=== PATIENT | male | born 1970 | race Caucasian/White ===

== ENCOUNTER 2018-11-10 14:48 | Inpatient (IN) | payer MEDICARE, OTHER ==
[2018-11-10] MEDS ORDERED: DiphenhydrAMINE 50 mg/ml Inj IVP STA (15:30)
[2018-11-10] MEDS ORDERED: DiphenhydrAMINE 50 mg/ml Inj ONE (15:40)
[2018-11-10 15:52] LABS: BASO # 0.1 K/uL (0.0-0.2); BASO % 0.6 % (0.0-2.0); EOS % 0.4 % (0.0-4.0); HEMOGLOBIN 11.4 g/dL (12.0-18.0); LYMPH # 1.4 K/uL (1.0-4.3); LYMPH % 12.7 % (20.0-40.0); MEAN CELL VOLUME 71.6 fL (80.0-94.0); MEAN CORPUSCULAR HEMOGLOBIN 22.7 pg (27.0-31.0); MEAN CORPUSCULAR HGB CONC 31.7 g/dL (33.0-37.0); MEAN PLATELET VOLUME 8.2 fL (7.2-11.7); MONO # 0.7 K/uL (0.0-0.8); NEUT # 8.7 K/uL (1.8-7.0); NEUT % 80.3 % (50.0-75.0); RBC 5.02 Mil/uL (4.40-5.90); RED CELL DISTRIBUTION WIDTH 16.9 % (11.5-14.5); WHITE BLOOD COUNT 10.9 K/uL (4.8-10.8)
[2018-11-10 16:07] LABS: ALB/GLOB RATIO 1.4 (1.0-2.1); ALBUMIN 4.5 g/dL (3.5-5.0); ALT/SGPT 26 U/L (21-72); AST/SGOT 35 U/L (17-59); BLOOD UREA NITROGEN 15 mg/dL (9-20); CALCIUM 8.7 mg/dl (8.6-10.4); GFR NON-AFRICAN AMERICAN > 60
--- NOTE | 2018-11-10 16:08 | RAD ---
Date of service: 11/10/2018 PROCEDURE: CHEST RADIOGRAPH, 1 VIEW HISTORY: SOB COMPARISON: 08/03/2017. FINDINGS: LUNGS: There is bibasilar subsegmental atelectasis. No focal consolidation PLEURA: No pneumothorax or pleural effusion. CARDIOVASCULAR: The heart is normal in size. No aortic atherosclerotic calcifications present. OSSEOUS STRUCTURES: Within normal limits for the patient's age. VISUALIZED UPPER ABDOMEN: Normal. OTHER FINDINGS: None. IMPRESSION: No active pulmonary disease.
--- NOTE | 2018-11-10 16:11 | C.PDOC ---
History Of Present Illness 47yo male with history of hypertension, comes to ER reporting left sided chest pain, described as a pressure sensation. Patient states he is visiting from [place] and has been here for the past 4 days. He reports associated headache and shortness of breath; states the headache is bifrontal and not thunderclap in nature and not the worst in his lifetime. No history of DVT or PE as well. No additional medical complaints Time Seen by Provider: 11/10/18 15:21 Chief Complaint (Nursing): Chest Pain History Per: Patient History/Exam Limitations: no limitations Onset/Duration Of Symptoms: Days Current Symptoms Are (Timing): Still Present Quality: Pressure Past Medical History Reviewed: Historical Data, Nursing Documentation, Vital Signs Vital Signs: Last Vital Signs Temp 98.2 F 11/10/18 14:53 Pulse 83 11/10/18 14:53 Resp 18 11/10/18 14:53 BP 139/84 11/10/18 14:53 Pulse Ox 100 11/10/18 14:53 - Medical History PMH: Asthma, HTN, Sleep Apnea (uses cpap ) Denies: Alzheimer's Disease, Atrial Fibrillation, CAD, Cardia Arrhythmia, CHF, Dementia, Hypercholesterolemia, Kidney Stones, Migraine, Mitral Valve Prolapse, Multiple Sclerosis, Parkinson's Disease, Peripheral Edema, Chronic Kidney Disease, TIA Surgical History: No Surg Hx Denies: Pacemaker - [facility] Procedures APPLICATION OF SPLINT (08/31/04) CENTRAL VENOUS CATHETER PLACEMENT WITH GUIDANCE (02/27/15) INJECT ANTIBIOTIC (03/07/15) NON-INVASIVE MECHANICAL VENTILATION (09/26/13) OCCUPATIONAL THERAPY (03/07/15) PERCUTANEOUS ABDOMINAL DRAINAGE (02/27/15) PHYSICAL THERAPY NEC (03/07/15) RECREATIONAL THERAPY (03/07/15) Family History: States: No Known Family Hx - Social History Hx Tobacco Use: No Hx Alcohol Use: No Hx Substance Use: No - Immunization History Hx Tetanus Toxoid Vaccination: No Hx Influenza Vaccination: No Hx Pneumococcal Vaccination: No Review Of Systems Except As Marked, All Systems Reviewed And Found Negative. Constitutional: Negative for: Fever, Chills, Sweats Cardiovascular: Positive for: Chest Pain Respiratory: Positive for: Shortness of Breath Neurological: Positive for: Headache Physical Exam - Physical Exam Appears: Non-toxic, No Acute Distress Skin: Normal Color Head: Atraumatic, Normacephalic Eye(s): bilateral: Normal Inspection Oral Mucosa: Moist Neck: Normal ROM, Supple Chest: Symmetrical Cardiovascular: Rhythm Regular Respiratory: Normal Breath Sounds, No Wheezing Gastrointestinal/Abdominal: Normal Exam, Soft Extremity: Normal ROM Neurological/Psych: Oriented x3 ED Course And Treatment - Laboratory Results Result Diagrams: 11/10/18 15:45 11/10/18 15:45 ECG: Interpreted By Me, Viewed By Me ECG Rhythm: Sinus Rhythm Interpretation Of ECG: Normal intervals, normal axis, no st/t changes Rate From EC O2 Sat by Pulse Oximetry: 100 (RA) Pulse Ox Interpretation: Normal - Radiology CXR: Interpreted by Me, Viewed By Me CXR Interpretation: Yes: No Acute Disease - CT Scan/US CT head Other Rad Studies (CT/US): Read By Radiologist, Radiology Report Reviewed CT/US Interpretation: FINDINGS: HEMORRHAGE: No intracranial hemorrhage. BRAIN: No mass effect or edema. No atrophy or chronic microvascular ischemic changes. VENTRICLES: Unremarkable. No hydrocephalus. CALVARIUM: Unremarkable. PARANASAL SINUSES: Unremarkable as visualized. No significant inflammatory changes. MASTOID AIR CELLS: Unremarkable as visualized. No inflammatory changes. OTHER FINDINGS: None. IMPRESSION: No evidence of acute intracranial hemorrhage mass effect or midline shift. Medical Decision Making Medical Decision Making: Impression: 47yo male with headache, chest pain or shortness of breath Plan: -- Labs -- CT head w/o contrast -- Benadryl 25mg IV -- Reglan 10mg IV 1717 Initial troponin and ddimer negative CT head reviewed, no acute findings Case discussed with Dr. Harris and patient to be admitted for observation due to chest pain. 1826 - notified to admit patient to Dr. Oralia Palumbo. Disposition Discussed With : Juan Palumbo Doctor Will See Patient In The: Hospital Counseled Patient/Family Regarding: Studies Performed, Diagnosis - Disposition Disposition: HOSPITALIZED Disposition Time: 17:21 Condition: FAIR - Clinical Impression Clinical Impression: Chest pain, Headache - Scribe Statement The provider has reviewed the documentation as recorded by the Naseem Raymundo Provider Attestation: All medical record entries made by the Naseem were at my direction and personally dictated by me. I have reviewed the chart and agree that the record accurately reflects my personal performance of the history, physical exam, medical decision making, and the department course for this patient. I have also personally directed, reviewed, and agree with the discharge instructions and disposition.
[2018-11-10 16:31] LABS: B-TYPE NATRIURETIC PEPTIDE 32.9 pg/mL (0-450)
--- NOTE | 2018-11-10 17:05 | CT ---
Date of service: 11/10/2018 PROCEDURE: CT HEAD WITHOUT CONTRAST. HISTORY: dizziness COMPARISON: Comparison is made with 08/04/2017 TECHNIQUE: Axial computed tomography images were obtained through the head/brain without intravenous contrast. Radiation dose: Total exam DLP = 1208.19 mGy-cm. This CT exam was performed using one or more of the following dose reduction techniques: Automated exposure control, adjustment of the mA and/or kV according to patient size, and/or use of iterative reconstruction technique. FINDINGS: HEMORRHAGE: No intracranial hemorrhage. BRAIN: No mass effect or edema. No atrophy or chronic microvascular ischemic changes. VENTRICLES: Unremarkable. No hydrocephalus. CALVARIUM: Unremarkable. PARANASAL SINUSES: Unremarkable as visualized. No significant inflammatory changes. MASTOID AIR CELLS: Unremarkable as visualized. No inflammatory changes. OTHER FINDINGS: None. IMPRESSION: No evidence of acute intracranial hemorrhage mass effect or midline shift.
--- NOTE | 2018-11-10 18:27 | CP.PCM.CON ---
History of Present Illness - History of Present Illness History of Present Illness: 47yo male with history of hypertension, comes to ER reporting left sided chest pain as well as headache described as severe He reports associated headache and shortness of breath; states the headache is bifrontal denies fever or neck stiffness no photophobia seen in ER and Radiology suite Tue11/10/2018 - Medical History PMH: Asthma, HTN, Sleep Apnea (uses cpap 18) Denies: Alzheimer's Disease, Atrial Fibrillation, CAD, Cardia Arrhythmia, CHF, Dementia, Hypercholesterolemia, Kidney Stones, Migraine, Mitral Valve Prolapse, Multiple Sclerosis, Parkinson's Disease, Peripheral Edema, Chronic Kidney Disease, TIA Review of Systems - Constitutional Constitutional: As Per HPI - EENT Eyes: absent: As Per HPI, Blind Spots, Blurred Vision, Change in Vision, Decreased Night Vision, Diplopia, Discharge, Dry Eye, Exophthalmos, Floaters, Irritation, Itchy Eyes, Loss of Peripheral Vision, Pain, Photophobia, Requires Corrective Lenses, Sees Flashes, Spots in Vision, Tunnel Vision, Other Visual Disturbances, Loss of Vision, Other Ears: absent: As Per HPI, Decreased Hearing, Ear Discharge, Ear Pain, Tinnitus, Abnormal Hearing, Disequilibrium, Dizziness, Other Nose/Mouth/Throat: absent: As Per HPI, Epistaxis, Nasal Congestion, Nasal D ischarge, Nasal Obstruction, Nasal Trauma, Nose Pain, Post Nasal Drip, Sinus Pain, Sinus Pressure, Bleeding Gums, Change in Voice, Dental Pain, Dry Mouth, Dysphagia, Halitosis, Hoarsness, Lip Swelling, Mouth Lesions, Mouth Pain, Odynophagia, Sore Throat, Throat Swelling, Tongue Swelling, Facial Pain, Neck Pain, Neck Mass, Other - Cardiovascular Cardiovascular: As Per HPI - Respiratory Respiratory: absent: As Per HPI, Cough, Dyspnea, Hemoptysis, Dyspnea on Exertion, Wheezing, Snoring, Stridor, Pain on Inspiration, Chest Congestion, Excessive Mucous Production, Change in Mucous Color, Pain with Coughing, Other - Gastrointestinal Gastrointestinal: As Per HPI - Genitourinary Genitourinary: absent: As Per HPI, Change in Urinary Stream, Difficulty Urinating, Dysuria, Flank Pain, Hematuria, Pyuria, Nocturia, Urinary Incontinence, Urinary Frequency, Urinary Hesitance, Urinary Urgency, Voiding Freq/Small Amts, Freq UTI, Hx Renal/Bladder Calculi, Hx /Renal Surgery, Bladder Distension, Other - Musculoskeletal Musculoskeletal: absent: As Per HPI, Abnormal Gait, Arthralgias, Atrophy, Back Pain, Deformity, Joint Swelling, Limited Range of Motion, Loss of Height, Muscle Cramps, Muscle Weakness, Myalgias, Neck Pain, Numbness, Radiating Pain into Limb, Stiffness, Tingling, Other - Integumentary Integumentary: absent: As Per HPI, Acne, Alopecia, Bleeding Lesions, Change in Hair, Change in Nails, Change in Pigmentation, Changing Lesions, Dry Skin, Erythema, Furuncle, Hirsutism, Lesions, New Lesions, Non-Healing Lesions, Photosensitivity, Pruritus, Rash, Skin Pain, Skin Ulcer, Sores, Striae, Swelling, Unusual Bruising, Wounds, Jaundice, Other - Neurological Neurological: As Per HPI - Psychiatric Psychiatric: absent: As Per HPI, Abnormal Sleep Pattern, Anhedonia, Anxiety, Auditory Hallucinations, Behavioral Changes, Change in Appetite, Change in Libido, Confusion, Depression, Difficulty Concentrating, Hallucinations, Homicidal Ideation, Hopelessness, Irritability, Memory Loss, Mood Swings, Panic Attacks, Paranoia, Suicidal Ideation, Visual Hallucinations, Tactile Halluci nations, Other - Endocrine Endocrine: absent: As Per HPI, Change in Body Appearance, Change in Libido, Cold Intolorance, Deepening of Voice, Excessive Sweating, Fatigue, Flushing, Heat Intolorance, Increase in Ring/Shoe/Hat Size, Palpitations, Polydipsia, Polyp hagia, Polyuria, Other - Hematologic/Lymphatic Hematologic: absent: As Per HPI, Easy Bleeding, Easy Bruising, Lymphadenopathy, Other Past Patient History - Infectious Disease Hx of Infectious Diseases: None - Tetanus Immunizations Tetanus Immunization: Unknown - Past Medical History & Family History Past Medical History?: Yes - Past Social History Smoking Status: Never Smoked - CARDIAC Hx Atrial Fibrillation: No Hx Cardia Arrhythmia: No Hx Congestive Heart Failure: No Hx Hypercholesterolemia: No Hx Hypertension: Yes Hx Mitral Valve Prolapse: No Hx Pacemaker: No Hx Peripheral Edema: No - PULMONARY Hx Asthma: Yes Hx Sleep Apnea: Yes (uses cpap 18) - NEUROLOGICAL Hx Alzheimer's Disease: No Hx Dementia: No Hx Migraine: No Hx Multiple Sclerosis: No Hx Parkinson's Disease: No Hx Transient Ischemic Attacks (TIA): No - HEENT Hx HEENT Problems: Yes Other/Comment: Wears eyeglasses -distance - RENAL Hx Chronic Kidney Disease: No Hx Kidney Stones: No - ENDOCRINE/METABOLIC Hx Endocrine Disorders: Yes Other/Comment: hyperglycemia= post bariatric surgery - HEMATOLOGICAL/ONCOLOGICAL Hx Blood Disorders: No - INTEGUMENTARY Hx Dermatological Problems: No - MUSCULOSKELETAL/RHEUMATOLOGICAL Hx Musculoskeletal Disorders: Yes Hx Falls: Yes - GASTROINTESTINAL Hx Gastrointestinal Disorders: Yes Other/Comment: History of bariatric surgery, bariatric sleeve 2014 - GENITOURINARY/GYNECOLOGICAL Hx Genitourinary Disorders: No - PSYCHIATRIC Hx Substance Use: No - SURGICAL HISTORY Hx Surgeries: Yes Hx Gastric Bypass Surgery: Yes (Gastric Sleeve 2 years ago) Other/Comment: Tummy Tuck April 2014; breast reduction june 2014; lap band 2010 - ANESTHESIA Hx Anesthesia: Yes Hx Anesthesia Reactions: No Hx Malignant Hyperthermia: No Meds Allergies/Adverse Reactions: Allergies Allergy/AdvReac Type Severity Reaction Status Date / Time No Known Allergies Allergy Verified 11/10/18 14:52 - Medications Medications: Current Medications Ibuprofen (Motrin Tab) 400 mg PO Q6 PRN PRN Reason: Pain, moderate (4-7) Ondansetron HCl (Zofran Inj) 4 mg IVP Q6 PRN PRN Reason: Nausea/Vomiting Physical Exam - Constitutional Appears: Well, No Acute Distress, Chronically Ill - Head Exam Head Exam: ATRAUMATIC, NORMAL INSPECTION, NORMOCEPHALIC - Eye Exam Eye Exam: absent: Scleral icterus Pupil Exam: NORMAL ACCOMODATION, PERRL - ENT Exam ENT Exam: Mucous Membranes Moist, Normal Exam - Neck Exam Neck exam: Positive for: Normal Inspection - Respiratory Exam Respiratory Exam: Clear to Auscultation Bilateral, NORMAL BREATHING PATTERN - Cardiovascular Exam Cardiovascular Exam: REGULAR RHYTHM - GI/Abdominal Exam GI & Abdominal Exam: Normal Bowel Sounds, Soft. absent: Tenderness - Extremities Exam Extremities exam: Positive for: normal inspection - Back Exam Back exam: NORMAL INSPECTION - Neurological Exam Neurological exam: Alert, CN II-XII Intact, Normal Gait, Oriented x3, Reflexes Normal - Psychiatric Exam Psychiatric exam: Normal Affect, Normal Mood - Skin Skin Exam: Dry, Intact, Normal Color, Warm Results - Vital Signs Recent Vital Signs: Last Vital Signs Temp 98.2 F 11/10/18 14:53 Pulse 83 11/10/18 14:53 Resp 18 11/10/18 14:53 BP 139/84 11/10/18 14:53 Pulse Ox 100 11/10/18 18:25 - Labs Result Diagrams: 11/10/18 15:45 11/10/18 15:45 Labs: Laboratory Results - last 24 hr 11/10/18 11/10/18 11/10/18 15:45 15:45 16:21 WBC 10.9 H RBC 5.02 Hgb 11.4 L Hct 35.9 MCV 71.6 L MCH 22.7 L MCHC 31.7 L RDW 16.9 H Plt Count 296 MPV 8.2 Neut % (Auto) 80.3 H Lymph % (Auto) 12.7 L [place] % (Auto) 6.0 Eos % (Auto) 0.4 Baso % (Auto) 0.6 Neut # (Auto) 8.7 H Lymph # (Auto) 1.4 Benson # (Auto) 0.7 Eos # (Auto) 0.0 Baso # (Auto) 0.1 D-Dimer, Quantitative < 200 Sodium 137 Potassium 3.8 Chloride 99 Carbon Dioxide 25 Anion Gap 17 BUN 15 Creatinine 0.8 Est GFR ( Amer) > 60 Est GFR (Non-Af Amer) > 60 Random Glucose 95 Calcium 8.7 Total Bilirubin 0.5 AST 35 ALT 26 Alkaline Phosphatase 104 Troponin I < 0.0120 NT-Pro-B Natriuret Pep 32.9 Total Protein 7.6 Albumin 4.5 Globulin 3.1 Albumin/Globulin Ratio 1.4 Assessment & Plan (1) Chest pain Status: Acute (2) Radiculopathy Status: Acute (3) Headache Status: Chronic - Assessment and Plan (Free Text) Assessment: no definite evidence of infection recc : neuro eval consider LP if fever / headache develop
[2018-11-10] MEDS ORDERED: Iodixanol 320 MG/ML 100 ML BOTTLE IV ONE (18:31)
--- NOTE | 2018-11-10 23:14 | CP.PCM.HP ---
Past Patient History - Infectious Disease Hx of Infectious Diseases: None - Tetanus Immunizations Tetanus Immunization: Unknown - Past Medical History & Family History Past Medical History?: Yes - Past Social History Smoking Status: Never Smoked - CARDIAC Hx Atrial Fibrillation: No Hx Cardia Arrhythmia: No Hx Congestive Heart Failure: No Hx Hypercholesterolemia: No Hx Hypertension: Yes Hx Mitral Valve Prolapse: No Hx Pacemaker: No Hx Peripheral Edema: No - PULMONARY Hx Asthma: Yes Hx Sleep Apnea: Yes (uses cpap 18) - NEUROLOGICAL Hx Alzheimer's Disease: No Hx Dementia: No Hx Migraine: No Hx Multiple Sclerosis: No Hx Parkinson's Disease: No Hx Transient Ischemic Attacks (TIA): No - HEENT Hx HEENT Problems: Yes Other/Comment: Wears eyeglasses -distance - RENAL Hx Chronic Kidney Disease: No Hx Kidney Stones: No - ENDOCRINE/METABOLIC Hx Endocrine Disorders: Yes Other/Comment: hyperglycemia= post bariatric surgery - HEMATOLOGICAL/ONCOLOGICAL Hx Blood Disorders: No - INTEGUMENTARY Hx Dermatological Problems: No - MUSCULOSKELETAL/RHEUMATOLOGICAL Hx Musculoskeletal Disorders: Yes Hx Falls: Yes - GASTROINTESTINAL Hx Gastrointestinal Disorders: Yes Other/Comment: History of bariatric surgery, bariatric sleeve 2014 - GENITOURINARY/GYNECOLOGICAL Hx Genitourinary Disorders: No - PSYCHIATRIC Hx Substance Use: No - SURGICAL HISTORY Hx Surgeries: Yes Hx Gastric Bypass Surgery: Yes (Gastric Sleeve 2 years ago) Other/Comment: Tummy Tuck April 2014; breast reduction june 2014; lap band 2 011 - ANESTHESIA Hx Anesthesia: Yes Hx Anesthesia Reactions: No Hx Malignant Hyperthermia: No Meds Allergies/Adverse Reactions: Allergies Allergy/AdvReac Type Severity Reaction Status Date / Time No Known Allergies Allergy Verified 11/10/18 14:52 Physical Exam - Constitutional Appears: Well - Head Exam Head Exam: ATRAUMATIC, NORMAL INSPECTION, NORMOCEPHALIC - Eye Exam Eye Exam: EOMI, Normal appearance, PERRL Pupil Exam: NORMAL ACCOMODATION, PERRL - ENT Exam ENT Exam: Mucous Membranes Moist, Normal Exam - Neck Exam Neck exam: Positive for: Normal Inspection - Respiratory Exam Respiratory Exam: Decreased Breath Sounds - Cardiovascular Exam Cardiovascular Exam: REGULAR RHYTHM, +S1, +S2 - GI/Abdominal Exam GI & Abdominal Exam: Diminished Bowel Sounds, Soft - Rectal Exam Rectal Exam: Deferred Results - Vital Signs Recent Vital Signs: Last Vital Signs Temp 97.8 F 11/10/18 22:37 Pulse 70 11/10/18 22:37 Resp 20 11/10/18 22:37 BP 122/63 11/10/18 22:37 Pulse Ox 98 11/10/18 22:37 - Labs Result Diagrams: 11/10/18 15:45 11/10/18 15:45 Labs: Laboratory Results - last 24 hr 11/10/18 11/10/18 11/10/18 15:45 15:45 16:21 WBC 10.9 H RBC 5.02 Hgb 11.4 L Hct 35.9 MCV 71.6 L MCH 22.7 L MCHC 31.7 L RDW 16.9 H Plt Count 296 MPV 8.2 Neut % (Auto) 80.3 H Lymph % (Auto) 12.7 L [place] % (Auto) 6.0 Eos % (Auto) 0.4 Baso % (Auto) 0.6 Neut # (Auto) 8.7 H Lymph # (Auto) 1.4 [place] # (Auto) 0.7 Eos # (Auto) 0.0 Baso # (Auto) 0.1 ESR D-Dimer, Quantitative < 200 Sodium 137 Potassium 3.8 Chloride 99 Carbon Dioxide 25 Anion Gap 17 BUN 15 Creatinine 0.8 Est GFR ( Amer) > 60 Est GFR (Non-Af Amer) > 60 Random Glucose 95 Calcium 8.7 Total Bilirubin 0.5 AST 35 ALT 26 Alkaline Phosphatase 104 Troponin I < 0.0120 NT-Pro-B Natriuret Pep 32.9 Total Protein 7.6 Albumin 4.5 Globulin 3.1 Albumin/Globulin Ratio 1.4 Vitamin B12 11/10/18 11/10/18 19:29 21:42 WBC RBC Hgb Hct MCV MCH MCHC RDW Plt Count MPV Neut % (Auto) Lymph % (Auto) [place] % (Auto) Eos % (Auto) Baso % (Auto) Neut # (Auto) Lymph # (Auto) [place] # (Auto) Eos # (Auto) Baso # (Auto) ESR 35 H D-Dimer, Quantitative Sodium Potassium Chloride Carbon Dioxide Anion Gap BUN Creatinine Est GFR ( Amer) Est GFR (Non-Af Amer) Random Glucose Calcium Total Bilirubin AST ALT Alkaline Phosphatase Troponin I NT-Pro-B Natriuret Pep Total Protein Albumin Globulin Albumin/Globulin Ratio Vitamin B12 220 L
[2018-11-11 00:19] LABS: CK-MB 0.38 ng/mL (0.0-3.38)
[2018-11-11] MEDS: Enoxaparin 40 mg Syringe SC SCH (10:01)
[2018-11-11 16:54] LABS: CK-MB 0.23 ng/mL (0.0-3.38)
--- NOTE | 2018-11-11 18:27 | CP.PCM.PN ---
Subjective - Date & Time of Evaluation Date of Evaluation: 11/11/18 Time of Evaluation: 09:45 - Subjective Subjective: clinically same Objective - Vital Signs/Intake and Output Vital Signs (last 24 hours): Temp Pulse Resp BP Pulse Ox 97.5 F L 81 20 155/81 H 98 11/11/18 07:38 11/11/18 15:08 11/11/18 07:38 11/11/18 07:38 11/11/18 07:38 - Medications Medications: Current Medications Aspirin (Aspirin) 325 mg PO DAILY [facility] Last Admin: 11/11/18 10:01 Dose: 325 mg Cyanocobalamin (Vitamin B12 100 Mcg Tab) 100 mcg PO DAILY [facility] Enoxaparin Sodium (Lovenox) 40 mg SC DAILY [facility] Last Admin: 11/11/18 10:01 Dose: 40 mg Ibuprofen (Motrin Tab) 400 mg PO Q6 PRN PRN Reason: Pain, moderate (4-7) Last Admin: 11/11/18 17:18 Dose: 400 mg Ondansetron HCl (Zofran Inj) 4 mg IVP Q6 PRN PRN Reason: Nausea/Vomiting Last Admin: 11/10/18 19:19 Dose: 4 mg - Labs Labs: 11/10/18 15:45 11/10/18 15:45 - Constitutional Appears: Well - Head Exam Head Exam: ATRAUMATIC, NORMAL INSPECTION, NORMOCEPHALIC - Eye Exam Eye Exam: EOMI, Normal appearance, PERRL Pupil Exam: NORMAL ACCOMODATION, PERRL - ENT Exam ENT Exam: Mucous Membranes Moist, Normal Exam - Neck Exam Neck Exam: Full ROM, Normal Inspection. absent: Lymphadenopathy - Respiratory Exam Respiratory Exam: Decreased Breath Sounds - Cardiovascular Exam Cardiovascular Exam: REGULAR RHYTHM, +S1, +S2 - GI/Abdominal Exam GI & Abdominal Exam: Soft, Diminished Bowel Sounds - Rectal Exam Rectal Exam: Deferred
--- NOTE | 2018-11-11 19:57 | CP.PCM.CON ---
History of Present Illness - History of Present Illness History of Present Illness: 47yo male with history of hypertension, comes to ER reporting left sided chest pain, described as a pressure sensation. Patient states he is visiting from [place] and has been here for the past 4 days. He reports associated headache and shortness of breath; states the headache is bifrontal and not thunderclap in nature and not the worst in his lifetime. No history of DVT or PE as well. No additional medical complaintsHe recently lost his sister, who of Brain Tumor, Very fast and aggressive Gliosarcoma. He feels unhappy and depressed due to mourning as this sister was very valuable and supportive to him. He has Vitamin B12 Deficiency - Medical History PMH: Asthma, HTN, Sleep Apnea (uses cpap 18) Denies: Alzheimer's Disease, Atrial Fibrillation, CAD, Cardia Arrhythmia, CHF , Dementia, Hypercholesterolemia, Kidney Stones, Migraine, Mitral Valve Prolapse, Multiple Sclerosis, Parkinson's Disease, Peripheral Edema, Chronic Kidney Disease, TIA H/O Cervical and Lumbosacral Radiculopathy. Family History: Brain Tumor, anxiety depression, CVA in Both Parents, Brother and sister have a History of Cerebral Aneurysm and Brain Tumors, Obesity Past Patient History - Infectious Disease Hx of Infectious Diseases: None - Tetanus Immunizations Tetanus Immunization: Unknown - Past Medical History & Family History Past Medical History?: Yes - Past Social History Smoking Status: Never Smoked - CARDIAC Hx Atrial Fibrillation: No Hx Cardia Arrhythmia: No Hx Congestive Heart Failure: No Hx Hypercholesterolemia: No Hx Hypertension: Yes Hx Mitral Valve Prolapse: No Hx Pacemaker: No Hx Peripheral Edema: No - PULMONARY Hx Asthma: Yes Hx Sleep Apnea: Yes (uses cpap 18) - NEUROLOGICAL Hx Alzheimer's Disease: No Hx Dementia: No Hx Migraine: No Hx Multiple Sclerosis: No Hx Parkinson's Disease: No Hx Transient Ischemic Attacks (TIA): No - HEENT Hx HEENT Problems: Yes Other/Comment: Wears eyeglasses -distance - RENAL Hx Chronic Kidney Disease: No Hx Kidney Stones: No - ENDOCRINE/METABOLIC Hx Endocrine Disorders: Yes Other/Comment: hyperglycemia= post bariatric surgery - HEMATOLOGICAL/ONCOLOGICAL Hx Blood Disorders: No - INTEGUMENTARY Hx Dermatological Problems: No - MUSCULOSKELETAL/RHEUMATOLOGICAL Hx Musculoskeletal Disorders: Yes Hx Falls: Yes - GASTROINTESTINAL Hx Gastrointestinal Disorders: Yes Other/Comment: History of bariatric surgery, bariatric sleeve 2014 - GENITOURINARY/GYNECOLOGICAL Hx Genitourinary Disorders: No - PSYCHIATRIC, . Hx Substance Use: No -History of slip and fall accident Treated conservatively - SURGICAL HISTORY Hx Surgeries: Yes Hx Gastric Bypass Surgery: Yes (Gastric Sleeve 2 years ago) Other/Comment: Tummy Tuck April 2014; breast reduction June 2014; lap band 2010 - ANESTHESIA Hx Anesthesia: Yes Hx Anesthesia Reactions: No Hx Malignant Hyperthermia: No Meds Allergies/Adverse Reactions: Allergies Allergy/AdvReac Type Severity Reaction Status Date / Time No Known Allergies Allergy Verified 11/10/18 14:52 - Medications Medications: Current Medications Ibuprofen (Motrin Tab) 400 mg PO Q6 PRN PRN Reason: Pain, moderate (4-7) Ondansetron HCl (Zofran Inj) 4 mg IVP Q6 PRN PRN Reason: Nausea/Vomiting Results Negative CT Brain, Negative CXR, negative EKG - Vital Signs Recent Vital Signs: Last Vital Signs Temp 98.2 F 11/10/18 14:53 Pulse 83 11/10/18 14:53 Resp 18 11/10/18 14:53 BP 139/84 11/10/18 14:53 Pulse Ox 100 11/10/18 18:25 - Labs Result Diagrams: 11/10/18 15:45 11/10/18 15:45 Labs: Laboratory Results - last 24 hr 11/10/18 11/10/18 11/10/18 15:45 15:45 16:21 WBC 10.9 H RBC 5.02 Hgb 11.4 L Hct 35.9 MCV 71.6 L MCH 22.7 L MCHC 31.7 L RDW 16.9 H Plt Count 296 MPV 8.2 Neut % (Auto) 80.3 H Lymph % (Auto) 12.7 L [place] % (Auto) 6.0 Eos % (Auto) 0.4 Baso % (Auto) 0.6 Neut # (Auto) 8.7 H Lymph # (Auto) 1.4 [place] # (Auto) 0.7 Eos # (Auto) 0.0 Baso # (Auto) 0.1 D-Dimer, Quantitative < 200 Sodium 137 Potassium 3.8 Chloride 99 Carbon Dioxide 25 Anion Gap 17 BUN 15 Creatinine 0.8 Est GFR ( Amer) > 60 Est GFR (Non-Af Amer) > 60 Random Glucose 95 Calcium 8.7 Total Bilirubin 0.5 AST 35 ALT 26 Alkaline Phosphatase 104 Troponin I < 0.0120 NT-Pro-B Natriuret Pep 32.9 Total Protein 7.6 Albumin 4.5 Globulin 3.1 Albumin/Globulin Ratio 1.4 Past Patient History - Infectious Disease Hx of Infectious Diseases: None - Tetanus Immunizations Tetanus Immunization: Unknown - Past Medical History & Family History Past Medical History?: Yes - Past Social History Smoking Status: Never Smoked - CARDIAC Hx Atrial Fibrillation: No Hx Cardia Arrhythmia: No Hx Congestive Heart Failure: No Hx Hypercholesterolemia: No Hx Hypertension: Yes Hx Mitral Valve Prolapse: No Hx Pacemaker: No Hx Peripheral Edema: No - PULMONARY Hx Asthma: Yes Hx Sleep Apnea: Yes (uses cpap 18) - NEUROLOGICAL Hx Alzheimer's Disease: No Hx Dementia: No Hx Migraine: No Hx Multiple Sclerosis: No Hx Parkinson's Disease: No Hx Transient Ischemic Attacks (TIA): No - HEENT Hx HEENT Problems: Yes Other/Comment: Wears eyeglasses -distance - RENAL Hx Chronic Kidney Disease: No Hx Kidney Stones: No - ENDOCRINE/METABOLIC Hx Endocrine Disorders: Yes Other/Comment: hyperglycemia= post bariatric surgery - HEMATOLOGICAL/ONCOLOGICAL Hx Blood Disorders: No - INTEGUMENTARY Hx Dermatological Problems: No - MUSCULOSKELETAL/RHEUMATOLOGICAL Hx Musculoskeletal Disorders: Yes Hx Falls: Yes - GASTROINTESTINAL Hx Gastrointestinal Disorders: Yes Other/Comment: History of bariatric surgery, bariatric sleeve 2014 - GENITOURINARY/GYNECOLOGICAL Hx Genitourinary Disorders: No - PSYCHIATRIC Hx Substance Use: No - SURGICAL HISTORY Hx Surgeries: Yes Hx Gastric Bypass Surgery: Yes (Gastric Sleeve 2 years ago) Other/Comment: Tummy Tuck April 2014; breast reduction june 2014; lap band 2010 - ANESTHESIA Hx Anesthesia: Yes Hx Anesthesia Reactions: No Hx Malignant Hyperthermia: No Meds Allergies/Adverse Reactions: Allergies Allergy/AdvReac Type Severity Reaction Status Date / Time No Known Allergies Allergy Verified 11/10/18 14:52 - Medications Medications: Current Medications Aspirin (Aspirin) 325 mg PO DAILY [facility] Last Admin: 11/11/18 10:01 Dose: 325 mg Cyanocobalamin (Vitamin B12 100 Mcg Tab) 100 mcg PO DAILY [facility] Enoxaparin Sodium (Lovenox) 40 mg SC DAILY [facility] Last Admin: 11/11/18 10:01 Dose: 40 mg Ibuprofen (Motrin Tab) 400 mg PO Q6 PRN PRN Reason: Pain, moderate (4-7) Last Admin: 11/11/18 17:18 Dose: 400 mg Ondansetron HCl (Zofran Inj) 4 mg IVP Q6 PRN PRN Reason: Nausea/Vomiting Last Admin: 11/10/18 19:19 Dose: 4 mg Physical Exam - Neurological Exam Additional comments: Mental Status: Awake, alert, Oriented X 3, Normal memory X 3. He sounds unhappy, stressed and scared about his health, especially after the passing of his Sister. Speech is fluent, coherent. Cranial Nerves II to XII: No deficits Motor: Normal tone, power and muscle bulk. DTR: Difficult to elicit, 0-1/4 Plantar stimulation causes down going toes. Positive Lassegue test, limited neck movements. Sensory: only pain, no deficits. Cerebellar: Normal FNT Unable to check his tandem walking difficulty to perform HST due to his pain. Stature and Gait; Not tested. Results - Vital Signs Recent Vital Signs: Last Vital Signs Temp 97.8 F 11/11/18 16:00 Pulse 86 11/11/18 16:00 Resp 20 11/11/18 16:00 BP 118/78 11/11/18 16:00 Pulse Ox 97 11/11/18 16:00 - Labs Result Diagrams: 11/10/18 15:45 11/10/18 15:45 Labs: Laboratory Results - last 24 hr 11/10/18 11/10/18 11/10/18 19:29 21:42 23:53 ESR 35 H Total Creatine Kinase 84 CK-MB (Mass) 0.38 Troponin I < 0.0120 Vitamin B12 220 L 11/11/18 15:50 ESR Total Creatine Kinase 72 CK-MB (Mass) 0.23 Troponin I < 0.0120 Vitamin B12 Assessment & Plan (1) Chest pain Assessment and Plan: Acute chest pain. Status: Acute (2) Headache Assessment and Plan: Bi frontal, Throbbing 3 times per week and this last few hours a day, with photophobia and sonophobia and vomiting at times. It might be associated with panic attacks and anxiety at times. It is relieved by rest and over the counter analgesics. He has also a band like pressure like Headache which occurs while working and wile stressed and may be associated with anxiety and panic attacks. It lasts few hours daily and is relieved by rest. He is known to have a problem of Obesity and sleep apnea. He suffers from sleep apnea and is using a CPAP machine. He experience more headache in case he doesn't use his CPAP machine. Status: Chronic (3) Abdominal wall abscess Status: Acute Priority: High (4) Chest pain Status: Acute (5) DVT prophylaxis Status: Acute Priority: High (6) Dizziness Assessment and Plan: R/O Seizures, R/o CVA, Negative CT Brain Cannot fit MRI machine because of his Weight Father and Mother have a H/O CVA Status: Acute (7) Infected hematoma following procedure Status: Acute (8) Post concussion syndrome Assessment and Plan: He has more headache currently and after his concussion he feels more unhappy, especially after the passing of his beloved sister. 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 He has exacerbation of his Radiculopathy after significant efforts. Status: Acute
[2018-11-12 08:14] LABS: CK-MB 0.27 ng/mL (0.0-3.38)
[2018-11-12] MEDS: Enoxaparin 40 mg Syringe SC SCH (09:20)
--- NOTE | 2018-11-12 12:57 | CP.PCM.PN ---
Subjective - Date & Time of Evaluation Date of Evaluation: 11/12/18 Time of Evaluation: 10:00 - Subjective Subjective: clinically same Objective - Vital Signs/Intake and Output Vital Signs (last 24 hours): Temp Pulse Resp BP Pulse Ox 97.2 F L 82 18 129/82 96 11/12/18 07:00 11/12/18 07:00 11/12/18 07:00 11/12/18 07:00 11/12/18 07:00 - Medications Medications: Current Medications Aspirin (Aspirin) 325 mg PO DAILY [facility] Last Admin: 11/12/18 09:21 Dose: 325 mg Cyanocobalamin (Vitamin B12 100 Mcg Tab) 100 mcg PO DAILY [facility] Last Admin: 11/12/18 09:20 Dose: 100 mcg Enoxaparin Sodium (Lovenox) 40 mg SC DAILY [facility] Last Admin: 11/12/18 09:20 Dose: 40 mg Ibuprofen (Motrin Tab) 400 mg PO Q6 PRN PRN Reason: Pain, moderate (4-7) Last Admin: 11/11/18 23:25 Dose: 400 mg Ondansetron HCl (Zofran Inj) 4 mg IVP Q6 PRN PRN Reason: Nausea/Vomiting Last Admin: 11/10/18 19:19 Dose: 4 mg Tramadol HCl (Ultram) 50 mg PO Q6 PRN PRN Reason: Pain, moderate (4-7) Last Admin: 11/12/18 11:32 Dose: 50 mg - Labs Labs: 11/10/18 15:45 11/10/18 15:45 - Constitutional Appears: Well - Head Exam Head Exam: ATRAUMATIC, NORMAL INSPECTION, NORMOCEPHALIC - Eye Exam Eye Exam: EOMI, Normal appearance, PERRL Pupil Exam: NORMAL ACCOMODATION, PERRL - ENT Exam ENT Exam: Mucous Membranes Moist, Normal Exam - Neck Exam Neck Exam: Full ROM, Normal Inspection. absent: Lymphadenopathy - Respiratory Exam Respiratory Exam: Decreased Breath Sounds - Cardiovascular Exam Cardiovascular Exam: REGULAR RHYTHM, +S1, +S2 - GI/Abdominal Exam GI & Abdominal Exam: Soft, Diminished Bowel Sounds - Rectal Exam Rectal Exam: Deferred
--- NOTE | 2018-11-12 16:35 | CT ---
Date of service: 2018-11-10 18:44:37 PROCEDURE: CT Angiography of the Brain and neck. HISTORY: patient with intractable headache and blurry visio COMPARISON: None available. TECHNIQUE: CT angiography of the intracranial arteries was performed. Coronal and sagittal maximum intensity projection reformated images were generated. Radiation dose: Total exam DLP = 773.05 mGy-cm. This CT exam was performed using one or more of the following dose reduction techniques: Automated exposure control, adjustment of the mA and/or kV according to patient size, and/or use of iterative reconstruction technique. FINDINGS: RIGHT CAROTID ARTERIES: Common Carotid Artery: Normal. Carotid Bifurcation: Normal. Internal Carotid Artery:Normal. External Carotid Artery (proximal branches): Normal. LEFT CAROTID ARTERIES: Common Carotid Artery: Normal. Carotid Bifurcation: Normal. Internal Carotid Artery:Normal. External Carotid Artery (proximal branches): Normal. VERTEBRAL ARTERIES: Right Vertebral Artery: The right vertebral artery is small in size. Left Vertebral Artery: Normal. OTHER FINDINGS: no aortic atherosclerotic calcification or mural plaque present. INTERNAL CEREBRAL ARTERIES: Unremarkable. The skull base, petrous, cavernous and supraclinoid segments are bilaterally widely patent. ANTERIOR CEREBRAL ARTERIES: Unremarkable. A1 and A2 segments are widely patent. Smaller distal branches unremarkable, as visualized. MIDDLE CEREBRAL ARTERIES: Unremarkable. M1 and M2 segments are widely patent. Perisylvian branches grossly symmetric. POSTERIOR CIRCULATION: Basilar Artery: Unremarkable. Distal Vertebral Arteries: The distal right vertebral artery is very small in size. Posterior Cerebral Arteries: Unremarkable. Posterior Inferior Cerebellar Arteries: Unremarkable. ANEURYSM/ VASCULAR MALFORMATIONS: None. OTHER FINDINGS: None. IMPRESSION: Suboptimal study. Small size right vertebral artery. No evidence of intracranial arterial occlusion or critical stenosis. Preliminary report was submitted by [facility] Radiology contains concordant findings.
--- NOTE | 2018-11-12 16:45 | CP.PCM.PN ---
Subjective - Date & Time of Evaluation Date of Evaluation: 11/12/18 Time of Evaluation: 08:00 - Subjective Subjective: headache persists no fever alert no nucal rigidity Objective - Vital Signs/Intake and Output Vital Signs (last 24 hours): Temp Pulse Resp BP Pulse Ox 98 F 88 20 131/84 96 11/12/18 15:29 11/12/18 16:16 11/12/18 15:29 11/12/18 15:29 11/12/18 16:16 Intake and Output: 11/12/18 11/12/18 06:59 18:59 Output Total 450 Balance -450 - Medications Medications: Current Medications Aspirin (Aspirin) 325 mg PO DAILY [facility] Last Admin: 11/12/18 09:21 Dose: 325 mg Cyanocobalamin (Vitamin B12 100 Mcg Tab) 100 mcg PO DAILY [facility] Last Admin: 11/12/18 09:20 Dose: 100 mcg Enoxaparin Sodium (Lovenox) 40 mg SC DAILY [facility] Last Admin: 11/12/18 09:20 Dose: 40 mg Ibuprofen (Motrin Tab) 400 mg PO Q6 PRN PRN Reason: Pain, moderate (4-7) Last Admin: 11/11/18 23:25 Dose: 400 mg Ondansetron HCl (Zofran Inj) 4 mg IVP Q6 PRN PRN Reason: Nausea/Vomiting Last Admin: 11/10/18 19:19 Dose: 4 mg Tramadol HCl (Ultram) 50 mg PO Q6 PRN PRN Reason: Pain, moderate (4-7) Last Admin: 11/12/18 11:32 Dose: 50 mg - Labs Labs: 11/10/18 15:45 11/10/18 15:45 - Constitutional Appears: Well - Head Exam Head Exam: ATRAUMATIC, NORMAL INSPECTION, NORMOCEPHALIC - Eye Exam Eye Exam: EOMI, Normal appearance, PERRL Pupil Exam: NORMAL ACCOMODATION, PERRL - ENT Exam ENT Exam: Mucous Membranes Moist, Normal Exam - Neck Exam Neck Exam: Full ROM, Normal Inspection. absent: Lymphadenopathy - Respiratory Exam Respiratory Exam: Clear to Ausculation Bilateral, NORMAL BREATHING PATTERN - Cardiovascular Exam Cardiovascular Exam: REGULAR RHYTHM, +S1, +S2. absent: Murmur - GI/Abdominal Exam GI & Abdominal Exam: Soft, Normal Bowel Sounds. absent: Tenderness - Rectal Exam Rectal Exam: Deferred - Exam Exam: NORMAL INSPECTION - Extremities Exam Extremities Exam: Full ROM, Normal Capillary Refill, Normal Inspection. absent: Joint Swelling, Pedal Edema - Back Exam Back Exam: NORMAL INSPECTION - Neurological Exam Neurological Exam: Alert, Awake, CN II-XII Intact, Normal Gait, Oriented x3 - Psychiatric Exam Psychiatric exam: Normal Affect, Normal Mood - Skin Skin Exam: Dry, Intact, Normal Color, Warm Assessment and Plan (1) Chest pain Status: Acute (2) Radiculopathy Status: Acute (3) Headache Status: Chronic - Assessment and Plan (Free Text) Assessment: cont rx as per DR Jara
--- NOTE | 2018-11-12 20:59 | CP.PCM.PN ---
Subjective - Date & Time of Evaluation Date of Evaluation: 11/12/18 Time of Evaluation: 20:54 - Subjective Subjective: He is suffering from Headache, Mourning on his sister has improved.He is suffering from neck pain, cervical Headache, Vascular Headache, He has stress Headache. He is receiving his CPAP at night and this has helped him. He needs to have further work up for his sleep apnea after discharge. His chest pain persists, he needs Follow up for his chest pain and an in pput from ID about the possibility of a chest abscess. His Vitamin D is low and he was given Vitamin D and Oscal. Objective - Vital Signs/Intake and Output Vital Signs (last 24 hours): Temp Pulse Resp BP Pulse Ox 98 F 88 20 131/84 96 11/12/18 15:29 11/12/18 16:16 11/12/18 15:29 11/12/18 15:29 11/12/18 16:16 Intake and Output: 11/12/18 11/13/18 18:59 06:59 Output Total 450 Balance -450 - Medications Medications: Current Medications Aspirin (Aspirin) 325 mg PO DAILY [facility] Last Admin: 11/12/18 09:21 Dose: 325 mg Calcium Carbonate (Oscal) 500 mg PO BID [facility] Cyanocobalamin (Vitamin B12 100 Mcg Tab) 100 mcg PO DAILY [facility] Last Admin: 11/12/18 09:20 Dose: 100 mcg Enoxaparin Sodium (Lovenox) 40 mg SC DAILY [facility] Last Admin: 11/12/18 09:20 Dose: 40 mg Ergocalciferol (Drisdol 50,000 Intl Units Cap) 1 cap PO Q7D [facility] Ibuprofen (Motrin Tab) 400 mg PO Q6 PRN PRN Reason: Pain, moderate (4-7) Last Admin: 11/11/18 23:25 Dose: 400 mg Ondansetron HCl (Zofran Inj) 4 mg IVP Q6 PRN PRN Reason: Nausea/Vomiting Last Admin: 11/10/18 19:19 Dose: 4 mg Tramadol HCl (Ultram) 50 mg PO Q6 PRN PRN Reason: Pain, moderate (4-7) Last Admin: 11/12/18 11:32 Dose: 50 mg - Labs Labs: 11/10/18 15:45 11/10/18 15:45 Assessment and Plan (1) Chest pain Status: Acute (2) Headache Status: Chronic (3) Abdominal wall abscess Status: Acute (4) Chest pain Status: Acute (5) DVT prophylaxis Status: Acute (6) Dizziness Status: Acute (7) Infected hematoma following procedure Status: Acute (8) Post concussion syndrome Status: Acute (9) Radiculopathy Status: Acute
[2018-11-12] MEDS ORDERED: Ergocalciferol 50,000 Intl Units Cap PO SCH (21:00)
[2018-11-12 21:56] LABS: SQUAMOUS EPITHIAL 4 /hpf (0-5); URINE BACTERIA OCC (<OCC); URINE BILIRUBIN NEGATIVE (NEGATIVE); URINE BLOOD NEGATIVE (NEGATIVE); URINE CLARITY Clear (Clear); URINE COLOR Yellow (YELLOW); URINE GLUCOSE (UA) NORMAL (Normal); URINE LEUKOCYTE ESTERASE 1+ Leu/uL (Negative); URINE PROTEIN NEGATIVE (NEGATIVE); URINE UROBILINOGEN NORMAL mg/dL (0.2-1.0)
--- NOTE | 2018-11-12 22:59 | CON ---
DATE: 11/12/2018 REASON FOR CONSULTATION: Chest pain. HISTORY OF PRESENT ILLNESS: The patient is a 47-year-old morbidly obese American male, who presented because of chest discomfort. The patient stated that he went through a recent of his sister who from cancer, and started experiencing persistent chest heaviness. This has been steady until now. The patient is unaware of any history of DVT or pulmonary embolism in the past. The patient has a history of gastric bypass surgery, but regained all the weight loss that he achieved after his surgery within few years. The patient denies any associated diaphoresis, dizziness, or syncope. The patient has sleep apnea and is on BiPAP at home. SOCIAL HISTORY: The patient is a nonsmoker, nondrinker. He used to work in a restaurant recently. MEDICATIONS: Aspirin 325 mg once a day, Lovenox 40 mg subcutaneous once a day, Motrin 400 mg p.o. every 6 hours, Ultram 50 mg every 6 hours, vitamin B12 at 100 mcg daily, Zofran 4 mg intravenous every 6 hours p.r.n. REVIEW OF SYSTEMS: The patient complains of nausea, but no vomiting. No fever or chills. No dizziness or syncope. PHYSICAL EXAMINATION: GENERAL: The patient is a middle-aged male who does not appear to be in acute distress. VITAL SIGNS: Blood pressure 129/82, heart rate 82, temperature 97.2, respirations 18. HEENT: Normocephalic. CHEST: Clear. HEART: S1 and S2, regular and distant. SKIN: Bilateral inframammary scar from previous breast reduction. ABDOMEN: Soft. EXTREMITIES: 1+ pitting edema. No calf tenderness. LABORATORY DATA: Hemoglobin and hematocrit 11.4 and 35.9, white count 10.9, platelet count 296,000. D-dimer is elevated, 200. Four sets of troponins are negative. SMA-7 on 11/10/2016, day of admission, is entirely within normal limits. EKG revealed normal sinus rhythm at the rate of 79. Head CT scan without contrast, no evidence of acute intracranial finding. Head and neck CT angio is performed, but the reports are still pending. Chest x-ray, no active pulmonary disease. ASSESSMENT: 1. Chest pain, myocardial infarction is ruled out. 2. Morbid obesity. 3. Sleep apnea. RECOMMENDATIONS: Continue aspirin at 325 mg once a day, Lovenox is 40 mg subcutaneous once a day, Zofran 4 mg every 6 hours p.r.n., Ultram 50 mg every 6 hours p.r.n. Obtain an echocardiogram. The most recent echocardiographic study was in 07/2017, which revealed normal ejection fraction and no pulmonary hypertension. Nikita Riggins MD
--- NOTE | 2018-11-13 09:42 | CARD ---
APPROVED REPORT Date of service: 11/10/2018 EKG Measurement Heart [id number] [id number] <Conclusion> Normal sinus rhythm Normal ECG
[2018-11-13] MEDS: Enoxaparin 40 mg Syringe SC SCH (10:22)
--- NOTE | 2018-11-13 13:50 | CP.PCM.PN ---
Subjective - Date & Time of Evaluation Date of Evaluation: 11/13/18 Time of Evaluation: 09:00 - Subjective Subjective: denies fever c/o headache Objective - Vital Signs/Intake and Output Vital Signs (last 24 hours): Temp Pulse Resp BP Pulse Ox 98.2 F 58 L 20 126/67 96 11/13/18 04:00 11/13/18 04:00 11/13/18 04:00 11/13/18 04:00 11/13/18 10:00 Intake and Output: 11/13/18 11/13/18 06:59 18:59 Output Total 200 Balance -200 - Medications Medications: Current Medications Albuterol/Ipratropium (Duoneb 3 Mg/0.5 Mg (3 Ml) Ud) 3 ml INH RQ6 [facility] Aspirin (Aspirin) 325 mg PO DAILY [facility] Last Admin: 11/13/18 10:23 Dose: 325 mg Calcium Carbonate (Oscal) 500 mg PO BID [facility] Last Admin: 11/13/18 10:23 Dose: 500 mg Cyanocobalamin (Vitamin B12 100 Mcg Tab) 100 mcg PO DAILY [facility] Last Admin: 11/13/18 10:23 Dose: 100 mcg Enoxaparin Sodium (Lovenox) 40 mg SC DAILY [facility] Last Admin: 11/13/18 10:22 Dose: 40 mg Ergocalciferol (Drisdol 50,000 Intl Units Cap) 1 cap PO Q7D [facility] Last Admin: 11/12/18 21:07 Dose: 1 cap Ibuprofen (Motrin Tab) 400 mg PO Q6 PRN PRN Reason: Pain, moderate (4-7) Last Admin: 11/11/18 23:25 Dose: 400 mg Ondansetron HCl (Zofran Inj) 4 mg IVP Q6 PRN PRN Reason: Nausea/Vomiting Last Admin: 11/10/18 19:19 Dose: 4 mg Tramadol HCl (Ultram) 50 mg PO Q6 PRN PRN Reason: Pain, moderate (4-7) Last Admin: 11/12/18 21:08 Dose: 50 mg - Labs Labs: 11/10/18 15:45 11/10/18 15:45 - Constitutional Appears: Non-toxic, Chronically Ill - Head Exam Head Exam: NORMOCEPHALIC - Eye Exam Eye Exam: absent: Scleral icterus - ENT Exam ENT Exam: Mucous Membranes Dry - Neck Exam Neck Exam: absent: Lymphadenopathy - Respiratory Exam Respiratory Exam: Decreased Breath Sounds - Cardiovascular Exam Cardiovascular Exam: REGULAR RHYTHM - GI/Abdominal Exam GI & Abdominal Exam: Distended - Rectal Exam Rectal Exam: Deferred - Exam Exam: NORMAL INSPECTION - Extremities Exam Extremities Exam: absent: Pedal Edema - Back Exam Back Exam: absent: CVA tenderness (L), CVA tenderness (R) - Neurological Exam Neurological Exam: Alert, Awake, CN II-XII Intact Neuro motor strength exam: Left Upper Extremity: 4, Right Upper Extremity: 4, Left Lower Extremity: 4, Right Lower Extremity: 4 - Psychiatric Exam Psychiatric exam: Depressed Assessment and Plan (1) Chest pain Status: Acute (2) Radiculopathy Status: Acute (3) Headache Status: Chronic - Assessment and Plan (Free Text) Assessment: hold IV antibiotics no evidence of infection at this time
--- NOTE | 2018-11-13 14:18 | CP.PCM.PN ---
Subjective - Date & Time of Evaluation Date of Evaluation: 11/13/18 Time of Evaluation: 11:00 - Subjective Subjective: clinically same Objective - Vital Signs/Intake and Output Vital Signs (last 24 hours): Temp Pulse Resp BP Pulse Ox 98.2 F 58 L 20 126/67 96 11/13/18 04:00 11/13/18 04:00 11/13/18 04:00 11/13/18 04:00 11/13/18 10:00 Intake and Output: 11/13/18 11/13/18 06:59 18:59 Output Total 200 Balance -200 - Medications Medications: Current Medications Albuterol/Ipratropium (Duoneb 3 Mg/0.5 Mg (3 Ml) Ud) 3 ml INH RQ6 [facility] Aspirin (Aspirin) 325 mg PO DAILY [facility] Last Admin: 11/13/18 10:23 Dose: 325 mg Calcium Carbonate (Oscal) 500 mg PO BID [facility] Last Admin: 11/13/18 10:23 Dose: 500 mg Cyanocobalamin (Vitamin B12 100 Mcg Tab) 100 mcg PO DAILY [facility] Last Admin: 11/13/18 10:23 Dose: 100 mcg Enoxaparin Sodium (Lovenox) 40 mg SC DAILY [facility] Last Admin: 11/13/18 10:22 Dose: 40 mg Ergocalciferol (Drisdol 50,000 Intl Units Cap) 1 cap PO Q7D [facility] Last Admin: 11/12/18 21:07 Dose: 1 cap Ceftriaxone Sodium 1 gm/ (Sodium Chloride) 100 mls @ 100 mls/hr IVPB Q12H [facility]; Protocol Ibuprofen (Motrin Tab) 400 mg PO Q6 PRN PRN Reason: Pain, moderate (4-7) Last Admin: 11/11/18 23:25 Dose: 400 mg Ondansetron HCl (Zofran Inj) 4 mg IVP Q6 PRN PRN Reason: Nausea/Vomiting Last Admin: 11/10/18 19:19 Dose: 4 mg Tramadol HCl (Ultram) 50 mg PO Q6 PRN PRN Reason: Pain, moderate (4-7) Last Admin: 11/12/18 21:08 Dose: 50 mg - Labs Labs: 11/10/18 15:45 11/10/18 15:45
--- NOTE | 2018-11-13 18:02 | RAD ---
Date of service: 11/13/2018 PROCEDURE: Radiographs of the Lumbar Spine. HISTORY: back pain COMPARISON: No prior. FINDINGS: BONES: Normal alignment. No listhesis. No fracture. DISC SPACES: Unremarkable. OTHER FINDINGS: Calcified nonaneurysmal abdominal aorta. IMPRESSION: Unremarkable radiographs of the lumbar spine.
--- NOTE | 2018-11-13 18:02 | RAD ---
Date of service: 11/13/2018 HISTORY: Pain. No history of recent/ related trauma provided COMPARISON: No prior. FINDINGS: BONES: Alignment maintained. No fracture. DISC SPACES: Multilevel degenerative changes. SOFT TISSUES: Normal. OTHER FINDINGS: None. IMPRESSION: No acute findings related to/ accounting for the clinical presentation.
--- NOTE | 2018-11-13 18:33 | PN ---
DATE: 11/13/2018 SUBJECTIVE: The patient states he is still experiencing steady chest discomfort as well as back pain. He was wheezing last night. PHYSICAL EXAMINATION: VITAL SIGNS: Blood pressure 126/67, heart rate 68, temperature 98.2, respirations 20. HEENT: Normocephalic. CHEST: Diminished breath sounds over the bases. HEART: S1, S2. Regular. ABDOMEN: Soft. EXTREMITIES: 1+ pitting edema. ASSESSMENT: 1. Atypical chest pain, myocardial infarction is ruled out. 2. Morbid obesity. 3. Sleep apnea. 4. Bronchospasm last night. RECOMMENDATIONS: Continue aspirin at 325 mg once a day, Lovenox 40 mg subcutaneous once a day, vitamin B12 100 mcg daily. echocardiographic study performed today and obtain an x-ray . Nikita Riggins MD
[2018-11-13] MEDS: Albuterol-Ipratrop 3 mg / 0.5 (3 ml) UD INH SCH (19:30)
--- NOTE | 2018-11-13 23:14 | CARD ---
APPROVED REPORT Date of service: 11/13/2018 EXAM: Two-dimensional and M-mode echocardiogram with Doppler and color Doppler. INDICATION Chest Pain RISK FACTORS Hypertension Obesity 2D DIMENSIONS LA Vfiqrt55 (18-58mL) M-Mode DIMENSIONS Left Atrium (MM)3.83 (2.5-4.0cm)Aortic Root3.10 (2.2-3.7cm) Aortic Cusp Exc.2.20 (1.5-2.0cm) Mitral Valve MV E Gurawgxk519.9cm/sMV A Dzvkdyuh35.8cm/sE/A ratio1.1 TDI Lateral E' Peak V11.88cm/sMedial E' Peak V10.48cm/sE/Lateral E'9.2 E/Medial E'10.4 LEFT VENTRICLE The left ventricle is normal size. There is normal left ventricular wall thickness. Left ventricle systolic function is borderline. The left ventricular diastolic function is normal. RIGHT VENTRICLE The right ventricle is normal size. There is normal right ventricular wall thickness. Systolic function is borderline reduced. ATRIA The left atrium size is grossly normal. The right atrium size is normal. The interatrial septum is intact with no evidence for an atrial septal defect. AORTIC VALVE The aortic valve is normal in structure. No aortic regurgitation is present. There is no aortic valvular stenosis. MITRAL VALVE The mitral valve is normal in structure. There is no evidence of mitral valve prolapse. There is no mitral valve stenosis. There is no mitral valve regurgitation noted. TRICUSPID VALVE The tricuspid valve is normal in structure. There is no tricuspid valve regurgitation noted. PULMONIC VALVE The pulmonic valve is not well visualized. There is no pulmonic valvular regurgitation. <Conclusion> TECHNICALLY DIFFICULT STUDY Left ventricle systolic function is borderline. No aortic regurgitation is present. There is no mitral valve regurgitation noted. There is no tricuspid valve regurgitation noted. There is no pulmonic valvular regurgitation. SUGGEST ALAN FOR BETTER VISUALIZATION OF CARDIAC STRUCTURES.
--- NOTE | 2018-11-13 23:27 | CP.PCM.PN ---
Subjective - Date & Time of Evaluation Date of Evaluation: 11/13/18 Time of Evaluation: 22:00 - Subjective Subjective: Patient had an abnormal Urine Exam, many RBCs and few WBCs. He is on IV Ceftriaxone Thoracic spine X Ray and Chest X Ray are normal. Normal VS PE is showing no change. Negative bilateral Carotid Doppler. Objective - Vital Signs/Intake and Output Vital Signs (last 24 hours): Temp Pulse Resp BP Pulse Ox 97.9 F 85 20 146/87 98 11/13/18 16:39 11/13/18 19:31 11/13/18 16:39 11/13/18 16:39 11/13/18 16:39 Intake and Output: 11/13/18 11/14/18 18:59 06:59 Intake Total 300 Balance 300 - Medications Medications: Current Medications Albuterol/Ipratropium (Duoneb 3 Mg/0.5 Mg (3 Ml) Ud) 3 ml INH RQ6 [facility] Last Admin: 11/13/18 19:30 Dose: 3 ml Aspirin (Aspirin) 325 mg PO DAILY [facility] Last Admin: 11/13/18 10:23 Dose: 325 mg Calcium Carbonate (Oscal) 500 mg PO BID [facility] Last Admin: 11/13/18 17:56 Dose: 500 mg Cyanocobalamin (Vitamin B12 100 Mcg Tab) 100 mcg PO DAILY [facility] Last Admin: 11/13/18 10:23 Dose: 100 mcg Enoxaparin Sodium (Lovenox) 40 mg SC DAILY [facility] Last Admin: 11/13/18 10:22 Dose: 40 mg Ergocalciferol (Drisdol 50,000 Intl Units Cap) 1 cap PO Q7D [facility] Last Admin: 11/12/18 21:07 Dose: 1 cap Ceftriaxone Sodium 1 gm/ (Sodium Chloride) 100 mls @ 100 mls/hr IVPB Q12H [facility]; Protocol Last Admin: 11/13/18 14:38 Dose: 100 mls/hr Ibuprofen (Motrin Tab) 400 mg PO Q6 PRN PRN Reason: Pain, moderate (4-7) Last Admin: 11/11/18 23:25 Dose: 400 mg Ondansetron HCl (Zofran Inj) 4 mg IVP Q6 PRN PRN Reason: Nausea/Vomiting Last Admin: 11/10/18 19:19 Dose: 4 mg Tramadol HCl (Ultram) 50 mg PO Q6 PRN PRN Reason: Pain, moderate (4-7) Last Admin: 11/12/18 21:08 Dose: 50 mg - Labs Labs: 11/10/18 15:45 11/10/18 15:45 Assessment and Plan (1) Chest pain Status: Acute (2) Headache Status: Chronic (3) Abdominal wall abscess Status: Acute (4) Chest pain Status: Acute (5) DVT prophylaxis Status: Acute (6) Dizziness Status: Acute (7) Infected hematoma following procedure Status: Acute (8) Post concussion syndrome Status: Acute (9) Radiculopathy Status: Acute
[2018-11-14] MEDS: Albuterol-Ipratrop 3 mg / 0.5 (3 ml) UD INH SCH ×3 (07:40→20:12)
[2018-11-14 08:28] VITALS: RESP 20
[2018-11-14] MEDS: Enoxaparin 40 mg Syringe SC SCH (09:25)
--- NOTE | 2018-11-14 11:12 | VASCLAB ---
Date of service: 11/13/2018 PROCEDURE: Carotid Duplex Exam. HISTORY: R/O CVA, father had a h/O CVA COMPARISON: None available. TECHNIQUE: Grayscale and duplex Doppler evaluation of the cervical carotid and vertebral arteries were performed. The common carotid, carotid bifurcations and cervical Internal Carotid Artery (ICA) and proximal External Carotid Artery (ECA) were evaluated. The vertebral arteries were evaluated for gross patency and flow direction. Report prepared by Kwabena Kelly, BS, RVT FINDINGS: RIGHT CAROTID ARTERIES: 1. Common Carotid Artery: No significant focal plaque formation of the right common carotid artery. Maximum Peak Systolic velocity: 137 cm/sec: End-diastolic velocity 35 cm/sec. 2. Carotid Bifurcation: plaque formation. Maximum Peak Systolic velocity: 85 cm/sec: End-diastolic velocity 28 cm/sec. 3. Internal Carotid Artery: Plaque description: 3.1. Proximal Segment: Peak systolic velocity 91 cm/sec: End-diastolic velocity 28 cm/sec - % stenosis 0-15% 3.2. Middle Segment: Peak systolic velocity 88 cm/sec: End-diastolic velocity 37 cm/sec - % stenosis 0-15% 3.3. Distal Segment: Peak systolic velocity 90 cm/sec: End-diastolic velocity 33 cm/sec - % stenosis 0-15% 4. External Carotid Artery: No significant focal plaque formation. Peak systolic velocity 111 cm/sec 5. ICA/CCA Ratio: 0.8 LEFT CAROTID ARTERIES: 1. Common Carotid Artery: No significant focal plaque formation of the left common carotid artery. Maximum Peak Systolic velocity: 152 cm/sec: End-diastolic velocity 32 cm/sec. 2. Carotid Bifurcation: plaque formation. Maximum Peak Systolic velocity: 101 cm/sec: End-diastolic velocity 30 cm/sec. 3. Internal Carotid Artery: Plaque description: 3.1. Proximal Segment: Peak systolic velocity 85 cm/sec: End-diastolic velocity 29 cm/sec - % stenosis 0-15% 3.2. Middle Segment: Peak systolic velocity 83 cm/sec: End-diastolic velocity 35 cm/sec - % stenosis 0-15% 3.3. Distal Segment: Peak systolic velocity 55 cm/sec: End-diastolic velocity 23 cm/sec - % stenosis 0-15% 4. External Carotid Artery: No significant focal plaque formation. Peak systolic velocity 114 cm/sec 5. ICA/CCA Ratio: 1.1 VERTEBRAL ARTERIES: 1. Right Vertebral Artery: The right vertebral artery flow direction is antegrade. 2. Left Vertebral Artery: The left vertebral artery flow direction is antegrade. OTHER FINDINGS: 1. Right Brachial Blood pressure: 122 mmHg. 2. Left Brachial Blood pressure: 118 mmHg. IMPRESSION: RIGHT: Duplex scan does not suggest hemodynamically significant stenosis of the right extracranial carotid arteries. LEFT: Duplex scan does not suggest hemodynamically significant stenosis of the left extracranial carotid arteries.
[2018-11-14 12:03] LABS: ALB/GLOB RATIO 1.4 (1.0-2.1); ALBUMIN 3.8 g/dL (3.5-5.0); ALT/SGPT 28 U/L (21-72); AST/SGOT 22 U/L (17-59); BLOOD UREA NITROGEN 15 mg/dL (9-20); CALCIUM 8.5 mg/dl (8.6-10.4); GFR NON-AFRICAN AMERICAN > 60
[2018-11-14 12:27] LABS: HEPATITIS B SURFACE AG Negative (NEGATIVE)
--- NOTE | 2018-11-14 12:31 | CP.PCM.PN ---
Subjective - Date & Time of Evaluation Date of Evaluation: 11/14/18 Time of Evaluation: 08:00 - Subjective Subjective: c/o abd pain afeb Objective - Vital Signs/Intake and Output Vital Signs (last 24 hours): Temp Pulse Resp BP Pulse Ox 97.5 F L 80 20 133/85 100 11/14/18 08:00 11/14/18 08:00 11/14/18 08:00 11/14/18 08:00 11/14/18 08:00 - Medications Medications: Current Medications Albuterol/Ipratropium (Duoneb 3 Mg/0.5 Mg (3 Ml) Ud) 3 ml INH RQ6 [facility] Last Admin: 11/14/18 07:40 Dose: 3 ml Aspirin (Aspirin) 325 mg PO DAILY [facility] Last Admin: 11/14/18 09:25 Dose: 325 mg Calcium Carbonate (Oscal) 500 mg PO BID [facility] Last Admin: 11/14/18 09:25 Dose: 500 mg Cyanocobalamin (Vitamin B12 100 Mcg Tab) 100 mcg PO DAILY [facility] Last Admin: 11/14/18 09:25 Dose: 100 mcg Enoxaparin Sodium (Lovenox) 40 mg SC DAILY [facility] Last Admin: 11/14/18 09:25 Dose: 40 mg Ergocalciferol (Drisdol 50,000 Intl Units Cap) 1 cap PO Q7D [facility] Last Admin: 11/12/18 21:07 Dose: 1 cap Ceftriaxone Sodium 1 gm/ (Sodium Chloride) 100 mls @ 100 mls/hr IVPB Q12H [facility]; Protocol Last Admin: 11/14/18 02:06 Dose: 100 mls/hr Ibuprofen (Motrin Tab) 400 mg PO Q6 PRN PRN Reason: Pain, moderate (4-7) Last Admin: 11/11/18 23:25 Dose: 400 mg Ondansetron HCl (Zofran Inj) 4 mg IVP Q6 PRN PRN Reason: Nausea/Vomiting Last Admin: 11/10/18 19:19 Dose: 4 mg Tramadol HCl (Ultram) 50 mg PO Q6 PRN PRN Reason: Pain, moderate (4-7) Last Admin: 11/12/18 21:08 Dose: 50 mg - Labs Labs: 11/10/18 15:45 11/14/18 11:32 - Constitutional Appears: Non-toxic, Chronically Ill - Head Exam Head Exam: NORMOCEPHALIC - Eye Exam Eye Exam: absent: Scleral icterus - ENT Exam ENT Exam: Mucous Membranes Dry - Neck Exam Neck Exam: absent: Lymphadenopathy - Respiratory Exam Respiratory Exam: Decreased Breath Sounds - Cardiovascular Exam Cardiovascular Exam: REGULAR RHYTHM - GI/Abdominal Exam GI & Abdominal Exam: Distended, Soft, Tenderness - Rectal Exam Rectal Exam: Deferred - Exam Exam: NORMAL INSPECTION Assessment and Plan (1) Chest pain Status: Acute (2) Radiculopathy Status: Acute (3) Headache Status: Chronic - Assessment and Plan (Free Text) Assessment: recc : GI eval IV antibiotics for UTI
[2018-11-14 12:32] LABS: HEPATITIS A IGM NEGATIVE (NEGATIVE); HEPATITIS B CORE AB NEGATIVE (NEGATIVE)
[2018-11-14] MEDS ORDERED: Glucagon Recombinant 1 mg Inj IM PRN (12:41)
[2018-11-14] MEDS ORDERED: Dextrose 50% SYRINGE Inj (50 ml) IV PRN (12:41)
[2018-11-14 12:44] LABS: HEPATITIS C ANTIBODY NEGATIVE (NEGATIVE)
[2018-11-14 13:15] VITALS: BMI 58.1
[2018-11-14 15:00] LABS: BASO # 0.1 K/uL (0.0-0.2); BASO % 0.6 % (0.0-2.0); EOS # 0.1 K/uL (0.0-0.7); HEMOGLOBIN 11.2 g/dL (12.0-18.0); LYMPH # 1.6 K/uL (1.0-4.3); MEAN CELL VOLUME 72.6 fL (80.0-94.0); MEAN CORPUSCULAR HEMOGLOBIN 22.4 pg (27.0-31.0); MEAN CORPUSCULAR HGB CONC 30.8 g/dL (33.0-37.0); MONO # 0.9 K/uL (0.0-0.8); MONO % 10.5 % (0.0-10.0); NEUT # 5.9 K/uL (1.8-7.0); NEUT % 68.9 % (50.0-75.0); RBC 4.98 Mil/uL (4.40-5.90); RED CELL DISTRIBUTION WIDTH 16.9 % (11.5-14.5); WHITE BLOOD COUNT 8.5 K/uL (4.8-10.8)
--- NOTE | 2018-11-14 15:45 | CP.PCM.PN ---
Subjective - Date & Time of Evaluation Date of Evaluation: 11/14/18 Time of Evaluation: 15:45 Objective - Vital Signs/Intake and Output Vital Signs (last 24 hours): Temp Pulse Resp BP Pulse Ox 97.5 F L 80 20 133/85 100 11/14/18 08:00 11/14/18 08:00 11/14/18 08:00 11/14/18 08:00 11/14/18 08:00 - Medications Medications: Current Medications Albuterol/Ipratropium (Duoneb 3 Mg/0.5 Mg (3 Ml) Ud) 3 ml INH RQ6 [facility] Last Admin: 11/14/18 13:45 Dose: 3 ml Aspirin (Aspirin) 325 mg PO DAILY [facility] Last Admin: 11/14/18 09:25 Dose: 325 mg Calcium Carbonate (Oscal) 500 mg PO BID [facility] Last Admin: 11/14/18 09:25 Dose: 500 mg Cyanocobalamin (Vitamin B12 100 Mcg Tab) 100 mcg PO DAILY [facility] Last Admin: 11/14/18 09:25 Dose: 100 mcg Dextrose (Dextrose 50% Inj) 0 ml IV STAT PRN; Protocol PRN Reason: Hypoglycemia Protocol Dextrose (Glutose 15) 0 gm PO ONCE PRN; Protocol PRN Reason: Hypoglycemia Protocol Enoxaparin Sodium (Lovenox) 40 mg SC DAILY [facility] Last Admin: 11/14/18 09:25 Dose: 40 mg Ergocalciferol (Drisdol 50,000 Intl Units Cap) 1 cap PO Q7D [facility] Last Admin: 11/12/18 21:07 Dose: 1 cap Glucagon (Glucagen Diagnostic Kit) 0 mg IM STAT PRN; Protocol PRN Reason: Hypoglycemia Protocol Ceftriaxone Sodium 1 gm/ (Sodium Chloride) 100 mls @ 100 mls/hr IVPB Q12H [facility]; Protocol Last Admin: 11/14/18 02:06 Dose: 100 mls/hr Dextrose (Dextrose 5% In Water 1000 Ml) 1,000 mls @ 0 mls/hr IV .Q0M PRN; Protocol PRN Reason: Hypoglycemia Protocol Ibuprofen (Motrin Tab) 400 mg PO Q6 PRN PRN Reason: Pain, moderate (4-7) Last Admin: 11/11/18 23:25 Dose: 400 mg Ondansetron HCl (Zofran Inj) 4 mg IVP Q6 PRN PRN Reason: Nausea/Vomiting Last Admin: 11/10/18 19:19 Dose: 4 mg Tramadol HCl (Ultram) 50 mg PO Q6 PRN PRN Reason: Pain, moderate (4-7) Last Admin: 11/12/18 21:08 Dose: 50 mg - Labs Labs: 11/14/18 14:46 11/14/18 11:32 Assessment and Plan - Assessment and Plan (Free Text) Assessment: FOLLOW UP WITH DR Esequiel HU IN HIS OFFICE ------CALL FOR APPOINTMENT FOLLOW UP LUIS IN HIS OFFICE -----CALL FOR APPOINTMENT FOLLOW UP WITH DR HAMILTON IN HIS OFFICE -----CALL FOR APPOINTMENT ADDRESS YOUR BLOOD RESULT AT YOUR VISIT FOLLOW UP WITH DR VELASQUEZ IN HIS OFFICE ADDRESS YOUR STRESS TEST OUT PATIENT AT YOUR VISIT CONTINUE HOME MEDICATION NEW PRESCRIPTION GIVEN OSCAL ONE TAB PO DAILY VIT B12 ON TAB PO DAILY DRISDOL ONE TAB PO EVERY 7 DAYS ACTIVITY TOLERATED CALL DR Esequiel HU OR GO TO THE EMERGENCY ROOM IF SYMPTOM RETURN OR WORSENING
--- NOTE | 2018-11-14 17:56 | CP.PCM.PN ---
Subjective - Date & Time of Evaluation Date of Evaluation: 11/14/18 Time of Evaluation: 10:45 - Subjective Subjective: clinically same Objective - Vital Signs/Intake and Output Vital Signs (last 24 hours): Temp Pulse Resp BP Pulse Ox 97.7 F 88 20 126/80 99 11/14/18 15:17 11/14/18 15:17 11/14/18 15:17 11/14/18 15:17 11/14/18 15:17 - Medications Medications: Current Medications Albuterol/Ipratropium (Duoneb 3 Mg/0.5 Mg (3 Ml) Ud) 3 ml INH RQ6 [facility] Last Admin: 11/14/18 13:45 Dose: 3 ml Aspirin (Aspirin) 325 mg PO DAILY [facility] Last Admin: 11/14/18 09:25 Dose: 325 mg Calcium Carbonate (Oscal) 500 mg PO BID [facility] Last Admin: 11/14/18 17:45 Dose: 500 mg Cyanocobalamin (Vitamin B12 100 Mcg Tab) 100 mcg PO DAILY [facility] Last Admin: 11/14/18 09:25 Dose: 100 mcg Dextrose (Dextrose 50% Inj) 0 ml IV STAT PRN; Protocol PRN Reason: Hypoglycemia Protocol Dextrose (Glutose 15) 0 gm PO ONCE PRN; Protocol PRN Reason: Hypoglycemia Protocol Enoxaparin Sodium (Lovenox) 40 mg SC DAILY [facility] Last Admin: 11/14/18 09:25 Dose: 40 mg Ergocalciferol (Drisdol 50,000 Intl Units Cap) 1 cap PO Q7D [facility] Last Admin: 11/12/18 21:07 Dose: 1 cap Glucagon (Glucagen Diagnostic Kit) 0 mg IM STAT PRN; Protocol PRN Reason: Hypoglycemia Protocol Dextrose (Dextrose 5% In Water 1000 Ml) 1,000 mls @ 0 mls/hr IV .Q0M PRN; Protocol PRN Reason: Hypoglycemia Protocol Ceftriaxone Sodium 1 gm/ (Sodium Chloride) 100 mls @ 100 mls/hr IVPB Q12H [facility]; Protocol Ibuprofen (Motrin Tab) 400 mg PO Q6 PRN PRN Reason: Pain, moderate (4-7) Last Admin: 11/11/18 23:25 Dose: 400 mg Ondansetron HCl (Zofran Inj) 4 mg IVP Q6 PRN PRN Reason: Nausea/Vomiting Last Admin: 11/10/18 19:19 Dose: 4 mg Tramadol HCl (Ultram) 50 mg PO Q6 PRN PRN Reason: Pain, moderate (4-7) Last Admin: 11/12/18 21:08 Dose: 50 mg - Labs Labs: 11/14/18 14:46 11/14/18 11:32
[2018-11-14] MEDS: Potassium Chloride 10 mEq ER Tab PO SCH (19:39)
--- NOTE | 2018-11-14 21:06 | PN ---
DATE: 11/14/2018 SUBJECTIVE: The patient is still experiencing steady aching chest discomfort. His tightness improved after nebulizer therapy. PHYSICAL EXAMINATION: VITAL SIGNS: Blood pressure 133/85, heart rate 80, temperature 97.5, respirations 20. HEENT: Normocephalic. CHEST: Minimal rhonchi. HEART: S1 and S2, regular. EXTREMITIES: Trace leg edema. LABORATORY DATA: Today's blood sugars 47, 52, and 104 respectively. Lumbar spine x-ray unremarkable. Thoracic spine x-ray, no acute findings. Carotid Doppler does not suggest hemodynamically significant disease. Echocardiographic study technically difficult. Borderline left ventricular systolic function. ASSESSMENT AND PLAN: 1. Atypical chest pain, myocardial infarction ruled out. 2. Morbid obesity. 3. Sleep apnea. 4. Bronchospasm. 5. Mild hypokalemia. Today's potassium level is 3.5. RECOMMENDATIONS: Continue aspirin 325 mg once a day, IV Rocephin 1 g every 12 hours, Lovenox 40 mg subcutaneously daily, vitamin B12 100 mcg orally daily. We will obtain the exact patient's weight prior to considering a Lexiscan study, as the table limit is 350 pounds and the documented weight here is 393. Otherwise, the patient will be referred to another facility for the test. Nikita Riggins MD
--- NOTE | 2018-11-14 23:49 | CP.PCM.PN ---
Subjective - Date & Time of Evaluation Date of Evaluation: 11/14/18 Time of Evaluation: 22:05 - Subjective Subjective: Patient has low blood glucose 47 and 53 readings, which need further care and studies. He is unable to perform stress test at [facility] due to his weight. He will have his test at [facility] that can accommodate his weight. He is interactive, still suffering from Headache, Chest Pain Back pain and Neck Pain. Objective - Vital Signs/Intake and Output Vital Signs (last 24 hours): Temp Pulse Resp BP Pulse Ox 97.7 F 88 20 126/80 99 11/14/18 15:17 11/14/18 15:17 11/14/18 15:17 11/14/18 15:17 11/14/18 15:17 Intake and Output: 11/14/18 11/15/18 18:59 06:59 Intake Total 800 Balance 800 - Medications Medications: Current Medications Albuterol/Ipratropium (Duoneb 3 Mg/0.5 Mg (3 Ml) Ud) 3 ml INH RQ6 [facility] Last Admin: 11/14/18 20:12 Dose: 3 ml Aspirin (Aspirin) 325 mg PO DAILY [facility] Last Admin: 11/14/18 09:25 Dose: 325 mg Calcium Carbonate (Oscal) 500 mg PO BID [facility] Last Admin: 11/14/18 17:45 Dose: 500 mg Cyanocobalamin (Vitamin B12 100 Mcg Tab) 100 mcg PO DAILY [facility] Last Admin: 11/14/18 09:25 Dose: 100 mcg Dextrose (Dextrose 50% Inj) 0 ml IV STAT PRN; Protocol PRN Reason: Hypoglycemia Protocol Dextrose (Glutose 15) 0 gm PO ONCE PRN; Protocol PRN Reason: Hypoglycemia Protocol Enoxaparin Sodium (Lovenox) 40 mg SC DAILY [facility] Last Admin: 11/14/18 09:25 Dose: 40 mg Ergocalciferol (Drisdol 50,000 Intl Units Cap) 1 cap PO Q7D [facility] Last Admin: 11/12/18 21:07 Dose: 1 cap Glucagon (Glucagen Diagnostic Kit) 0 mg IM STAT PRN; Protocol PRN Reason: Hypoglycemia Protocol Dextrose (Dextrose 5% In Water 1000 Ml) 1,000 mls @ 0 mls/hr IV .Q0M PRN; Protocol PRN Reason: Hypoglycemia Protocol Ceftriaxone Sodium 1 gm/ (Sodium Chloride) 100 mls @ 100 mls/hr IVPB Q12H [facility]; Protocol Last Admin: 11/14/18 19:42 Dose: 100 mls/hr Ibuprofen (Motrin Tab) 400 mg PO Q6 PRN PRN Reason: Pain, moderate (4-7) Last Admin: 11/11/18 23:25 Dose: 400 mg Ondansetron HCl (Zofran Inj) 4 mg IVP Q6 PRN PRN Reason: Nausea/Vomiting Last Admin: 11/10/18 19:19 Dose: 4 mg Potassium Chloride (Klor-Con 10) 10 meq PO [facility] Last Admin: 11/14/18 19:39 Dose: 10 meq Tramadol HCl (Ultram) 50 mg PO Q6 PRN PRN Reason: Pain, moderate (4-7) Last Admin: 11/12/18 21:08 Dose: 50 mg - Labs Labs: 11/14/18 14:46 11/14/18 11:32 Assessment and Plan (1) Chest pain Status: Acute (2) Headache Status: Chronic (3) Abdominal wall abscess Status: Acute (4) Chest pain Status: Acute (5) DVT prophylaxis Status: Acute (6) Dizziness Status: Acute (7) Infected hematoma following procedure Status: Acute (8) Post concussion syndrome Status: Acute (9) Radiculopathy Status: Acute
[2018-11-15] MEDS: Albuterol-Ipratrop 3 mg / 0.5 (3 ml) UD INH SCH ×2 (01:25→07:25)
[2018-11-15 01:26] VITALS: O2SAT 100
[2018-11-15 08:17] LABS: BASO % 0.8 % (0.0-2.0); EOS # 0.1 K/uL (0.0-0.7); EOS % 1.7 % (0.0-4.0); HEMOGLOBIN 9.9 g/dL (12.0-18.0); LYMPH # 1.1 K/uL (1.0-4.3); LYMPH % 18.1 % (20.0-40.0); MEAN CORPUSCULAR HEMOGLOBIN 23.3 pg (27.0-31.0); MEAN CORPUSCULAR HGB CONC 32.3 g/dL (33.0-37.0); MEAN PLATELET VOLUME 7.7 fL (7.2-11.7); MONO # 0.6 K/uL (0.0-0.8); MONO % 10.1 % (0.0-10.0); NEUT # 4.4 K/uL (1.8-7.0); NEUT % 69.3 % (50.0-75.0); RBC 4.27 Mil/uL (4.40-5.90); RED CELL DISTRIBUTION WIDTH 17.1 % (11.5-14.5); WHITE BLOOD COUNT 6.3 K/uL (4.8-10.8)
[2018-11-15 08:26] LABS: ALB/GLOB RATIO 1.4 (1.0-2.1); ALBUMIN 3.5 g/dL (3.5-5.0); ALT/SGPT 28 U/L (21-72); AST/SGOT 24 U/L (17-59); BLOOD UREA NITROGEN 15 mg/dL (9-20); GFR NON-AFRICAN AMERICAN > 60
[2018-11-15] MEDS: Potassium Chloride 10 mEq ER Tab PO SCH (09:28)
[2018-11-15] MEDS: Enoxaparin 40 mg Syringe SC SCH (09:30)
[2018-11-15 11:55] VITALS: BP 123/74; PULSE 8; TEMP 97.9
--- NOTE | 2018-11-15 15:27 | PN ---
DATE: 11/15/2018 LOCATION: 560, bed B. SUBJECTIVE: This is a 47-year-old male seen and examined initially for GI on 11/14/2018, reexamined again today without significant clinical changes, with reported atypical chest pain, appeared to be awake, alert, oriented with period of severe hypoglycemia at times. The entire chart was reviewed including but not limited to the most recent lab and radiology study results, current and the previous medication list, current and previous medical events with period of headache, back and neck pain. The entire chart is reviewed and the most recent lab results showed hemoglobin dropped to 9.9, hematocrit 30.8 with low indices highly suggestive of hypochromic microcytic anemia. Today's lab results, however, showed blood glucose level of 117, calcium 8, total protein 6.1, vitamin B12 205. PHYSICAL EXAMINATION: GENERAL: A 47-year-old male appeared to be awake, alert. VITAL SIGNS: Afebrile with pulse of 92, respiratory 20-22, blood pressure 130/76. HEENT: Showed pale dry oral mucous membrane. Nonicteric sclerae. LUNGS: Few scattered crepitation. Decreased air entry at bases. HEART: Positive S1, S2. ABDOMEN: Soft with mild generalized tenderness. No mass or organomegaly. No rebound tenderness or guarding. EXTREMITIES: Without significant edema, clubbing or cyanosis. IMPRESSION: 1. Chest pain, most likely noncardiac, discussed with the sap security consultant as myocardial infarction was ruled out. 2. Morbid obesity. 3. Anemia to rule out upper versus lower gastrointestinal blood loss. 4. Known history of sleep apnea, diabetes mellitus, malnutrition with hypocalcemia and hypoproteinemia. SUGGESTIONS: 1. Agree with your plan. 2. Antireflux measure. 3. Further recommendation to follow and the patient to be scheduled for upper endoscopy at a.m. when he is more stable clinically. Aundrea Lutz MD
--- NOTE | 2018-11-15 17:57 | PN ---
DATE: 11/15/2018 SUBJECTIVE: Plans for inpatient Lexiscan was canceled as the patient's weight turned out to be 393. The patient denies any chest pain or shortness of breath by the time I saw him this morning. PHYSICAL EXAMINATION: VITAL SIGNS: Blood pressure 123/74, heart rate 98, .temperature 99.7, respirations 20. HEENT: Normocephalic. CHEST: Clear. HEART: S1, S2 regular. EXTREMITIES: No edema. LABORATORY DATA: Patient's hemoglobin and hematocrit 9.9 and 30.3, white count and platelet count are within normal limits. Today's SMA-7 was entirely within normal limits. Calcium is slightly below normal at 8. ASSESSMENT: 1. Atypical chest pain, myocardial infarction is ruled out. 2. Morbid obesity. 3. Sleep apnea. 4. Improved hypokalemia. 5. Mild anemia. RECOMMENDATIONS: This case was discussed in detail with the patient and with the primary physician Dr. Laird and the patient was offered the option of Lexiscan at [facility] in [place]. However, he stated that he will be going back to [place] when he is discharged from [facility] today and he will seek to have that stress test done in [place] where he lives now. In the meantime, the patient will be maintained on aspirin, colchicine, and vitamin B12, and he will have his BiPAP with him. Nikita Riggins MD
--- NOTE | 2018-11-16 01:11 | CP.PCM.PN ---
Subjective - Date & Time of Evaluation Date of Evaluation: 11/15/18 Time of Evaluation: 12:35 - Subjective Subjective: His blood glucose was normal today. His headache is better controlled. He is advised to undergo a cardiac stress test and he is planning on having the test in [place]. He has a history of fluctuating blood glucose level. He will have an Endocrinology evaluation in [place]. His neurological tests are within normal. He is suffering from a drop in his Hemoglobin, Hematocrit, and Low MCV, suggesting anemia. An Endoscopy of the Upper GI was offered by GI specialist Dr Sean España. Patient is considering having his GI Studies in [place] to assess for his abdominal and chest pain and his anemia. Case is discussed with Dr Alcaraz of cardiology. Patient is to be discharged after being cleared by his doctors. Objective - Vital Signs/Intake and Output Vital Signs (last 24 hours): Temp Pulse Resp BP Pulse Ox 97.9 F 8 L 20 123/74 100 11/15/18 08:00 11/15/18 08:00 11/15/18 08:00 11/15/18 08:00 11/15/18 08:00 - Labs Labs: 11/15/18 08:09 11/15/18 08:09 Assessment and Plan (1) Chest pain Status: Acute (2) Headache Status: Chronic (3) Abdominal wall abscess Status: Acute (4) Chest pain Status: Acute (5) DVT prophylaxis Status: Acute (6) Dizziness Status: Acute (7) Infected hematoma following procedure Status: Resolved (8) Post concussion syndrome Status: Acute (9) Radiculopathy Status: Chronic
--- NOTE | 2018-11-16 13:27 | EEG ---
DATE: 11/13/2018 The record is obtained for history of headache, dizziness , rule out seizures. The record was obtained while the patient was awake and drowsy. The record was symmetrically equal on both sides with velocity of 8-9 cycles per second, who is fairly formed, fairly organized with posterior distribution moderate in amplitude, reactive to eye opening by attenuation. There were no abnormal discharge, no spike or polyspike, no sharp wave, no focal slowing, no paroxysmal discharge. There were no changes with photic stimulation. Hyperventilation was omitted. There were eye movement artifact, electrode artifact, and muscle movement artifact and sweat artifact. ASSESSMENT AND PLAN: In summary, this is a normal awake and drowsy electroencephalogram. There is no evidence of seizures. There is no evidence of encephalopathy. Clinical correlation is recommended. Marla Jara MD
== END 2018-11-15 13:15 | disposition home or self-care (01) | DRG 313 ==
LOC: C.ER 14:48 → C.9E 17:20 → C.5S 11-11 02:11 → OBSVTOIN 11-13 16:53
PROVIDERS: ADMIT Internal Medicine Nephrology; ATTEND Internal Medicine Nephrology
DX: R07.89 Other chest pain (principal); Z68.43 Body mass index [BMI] 50.0-59.9, adult; L02.211 Cutaneous abscess of abdominal wall; N39.0 Urinary tract infection, site not specified; E66.01 Morbid (severe) obesity due to excess calories; E87.6 Hypokalemia; F41.8 Other specified anxiety disorders; G47.30 Sleep apnea, unspecified; I10 Essential (primary) hypertension; Z98.84 Bariatric surgery status; G44.1 Vascular headache, not elsewhere classified; J45.909 Unspecified asthma, uncomplicated; M54.10 Radiculopathy, site unspecified; E11.9 Type 2 diabetes mellitus without complications; D64.9 Anemia, unspecified